=== PATIENT | female | born 1940 | race Caucasian/White ===

== ENCOUNTER 2019-11-17 10:23 | Day surgery (SDC) | payer MEDICARE, OTHER, SELFPAY ==
[2019-11-14 07:20] VITALS: BMI 30.9
--- NOTE | 2019-11-17 | PATH_ITS ---
[facility] Accession Number: [id number] . 01 Material submitted: . back - T10 BIOPSY . 02 Diagnosis: Bone, T10, Biopsy: Fragmented lamellar bone with reactive/reparative changes. Trilineage hematopoiesis. No evidence of neoplasia. MRV 11/21/2019 1158 Local . 02 Electronically signed: . Wendy Gonzalez MD, Pathologist NPI- [id number] . 01 Gross description: . Received in formalin and labeled with T10 biopsy is one piece of a bone core biopsy measuring 0.5 x 0.3 x 0.2 cm. The core is entirely submitted in cassette A1. Prior to processing, the core will be placed in decal solution for two hours. ([id number]) /MRV 11/18/2019 1031 Local . 02 Pathologist provided ICD-10: S22.070A . 02 CPT . 364401 Performed at: 01 [facility] [address], [place], [place] [id number] MD Connor Gamboa MD Phone: [phone] Performed at: 02 [facility] [address] [place], [place] [id number] MD Wendy Gonzalez MD Phone: [phone]
--- NOTE | 2019-11-17 | DI.RAD.S_ITS ---
PROCEDURE: XR T AND L SPINE 2 TO 3 VIEWS INDICATIONS: T10 KYPHOPLASTY TECHNIQUE: 2 views acquired of the thoracolumbar spine. COMPARISON: [facility] Outside Film, CT, CT THORACIC SPINE WITHOUT CONTRAST, 10/13/2019, 15:23. FINDINGS: Spot fluoroscopic intraoperative images demonstrating T10 kyphoplasty Dictated by: Price Valentine M.D. on 11/17/2019 at 16:55 Approved by: Price Valentine M.D. on 11/17/2019 at 16:56
[2019-11-17 11:53] VITALS: BP 116/70; PULSE 62; RESP 18; TEMP 36.2; O2SAT 100; BMI 29.2
[2019-11-17] MEDS: fentaNYL 100 MCG/2 ML INJ IV ×2 (13:00→13:41)
--- NOTE | 2019-11-17 14:43 | PM.PREOP ---
Pre-operative Note Interval Note History & Physical reviewed/Exam performed by Physician: Yes Changes to H&P: No
--- NOTE | 2019-11-17 14:43 | PM.OP.1 ---
Operative Date/Time/Diagnoses Date of procedure: 11/17/19 Time of procedure: 16:06 Pre-op diagnosis: T10 compression fracture Back pain Post-op diagnosis: same Procedure & Clinicians Procedure: T10 kyphoplasty Same procedure as scheduled: Yes Indications: [age] year old female with intractable pain from a T10 compression fracture. They had failed conservative management and requested operative intervention. Risks and benefits of surgery were discussed and appropriate consents were obtained. Surgeon: Zachary Bruce Click Yes if Unassisted: Yes Anesthesia Type: General Operative Notes Findings: None Closure Type: primary Specimen(s): other (T10 vertebral biopsy) Estimated Blood Loss (mL): 2 Procedure in detail: The patient was brought to the operating room and intubated on the table. They were then rolled over to the well-padded prone position. Care was taken to keep the injured right arm at her side the whole time. Time-out was performed. We confirmed positioning with two fluoroscopy views. The back was prepped and draped in the standard sterile fashion. Preoperative antibiotics were given. Using fluoroscopic guidance, the planned incision site was infiltrated with Marcaine with epinephrine and injected down to the entry site of the left pedicle of T10. A small stab incision was made and we advanced a Jamshiedi needle down the left pedicle into the vertebral body. A bone biopsy was harvested from this and sent to pathology. We then passed the DFine osteotome and opened it up to create a void inside the vertebral body. We then began injecting the cement. This was done with frequent fluoroscopy imaging. There was no extravasation, but this meant began working towards the back wall. Once we had good fill of the T10 vertebral body the injection was stopped and the trocars were removed. Final x-rays were taken. The wound was cleaned. Steri-Strips and sterile dressing were placed. Patient was rolled over, extubated, and brought to recovery without complications. Complications: none Post-operative Condition: stable Disposition: PACU Plan for aftercare: Outpatient. Activity as tolerated.
[2019-11-17] MEDS: CLINDAMYCIN 900 MG/50 ML PIGGYBACK 50 MG IV (15:25)
[2019-11-17] MEDS: BUPIVACAINE 0.25% W/ EPI 30 ML VIAL INJ (15:42)
--- NOTE | 2019-11-17 15:45 | SUR.OPER ---
Addendum entered by Price Crystal R.N. 11/17/19 15:47: tape secured across hips by . Original Note: Prone on padded flat spine table, head in foam head support, gel chest rolls, gel pad under knees, pillow under lower legs, toes free of pressure, Left arm secured on padded arm board at <90 degrees abduction with right arm secured at side. Safety belt at thigh.
[2019-11-17 16:05] VITALS: BP 138/70; PULSE 62; RESP 16; TEMP 36.5; O2SAT 97
[2019-11-17 16:10] VITALS: BP 132/68; PULSE 62; RESP 16; O2SAT 96
[2019-11-17 16:15] VITALS: BP 130/64; PULSE 64; RESP 16; O2SAT 97
== END 2019-11-17 16:29 | disposition home or self-care (01) ==
PROVIDERS: PCP Nurse Practitioner; Referring Provider Orthopaedic Surgery; Visit Provider Orthopaedic Surgery
PROC: (CPT 22513; principal; 2019-11-17 12:45)
DX: S22.070A Wedge compression fracture of T9-T10 vertebra, initial encounter for closed fracture (principal); M48.062 Spinal stenosis, lumbar region with neurogenic claudication; M43.16 Spondylolisthesis, lumbar region; M54.9 Dorsalgia, unspecified; M19.90 Unspecified osteoarthritis, unspecified site; W18.30XA Fall on same level, unspecified, initial encounter; Y92.481 Parking lot as the place of occurrence of the external cause
CPT/HCPCS: 22513; 72082; 76000; C1776; J2704; J3010

== ENCOUNTER 2022-10-20 16:33 | Inpatient (IN) | payer MEDICARE, OTHER, SELFPAY ==
[2022-10-20] VITALS (12 sets, daily range): BP systolic 158–186; BP diastolic 62–84; PULSE 93–110; RESP 16–17; TEMP 36.3–36.6; O2SAT 96–98; BMI 28.5; BMI 28.3
--- NOTE | 2022-10-20 16:51 | DI.CT.S_ITS ---
PROCEDURE: CT PEL WO CON INDICATIONS: left hip fracture TECHNIQUE: Noncontrast 3 mm axial sections acquired through the bony pelvis, with coronal and sagittal reformatting. COMPARISON: [facility] Outside Film, CT, CT PELVIS WITHOUT CONTRAST, 10/06/2022, 11:42. [facility], CR, XR PELVIS WITH LATERAL HIP LEFT, 10/20/2022, 15:43. FINDINGS: Image quality: Good Bones: Significantly comminuted basicervical left hip fracture with displacement, rotation, and about 90 degrees of angulation. There is underlying bone lucency. Partially seen lumbosacral spondylosis. Stable mild sclerotic region in the right posterior iliac bone. Soft tissues: Hematoma and edema surrounding the hip fracture. Intrapelvic intra-abdominal structures are not well evaluated on this study. Possible focal infrarenal abdominal aortic aneurysm about 3.4 centimeters. IMPRESSION: Comminuted, displaced, and angulated left hip fracture in the basicervical region, worse than prior from October 06. This may be pathologic, as described on prior outside CT with underlying bone lucency. Possible infrarenal abdominal aortic aneurysm about 3.4 centimeters. Dictated by: Kristopher Vickers M.D. on 10/20/2022 at 17:29 Approved by: Kristopher Vickers M.D. on 10/20/2022 at 17:34
[2022-10-20] MEDS: MORPHINE 2 MG/ML INJ IV (17:00)
--- NOTE | 2022-10-20 17:09 | ED_ITS ---
HPI - Extremity Injury (Lower) General Chief Complaint: Extremity Injury, Lower Stated Complaint: hip fracture, pain managment Time Seen by Provider: 10/20/22 16:39 Source: EMS Mode of arrival: EMS History of Present Illness HPI Narrative: Patient is an 81-year-old female who presents from orthopedic office with a left hip fracture. She apparently was seen and evaluated at [facility] on [address] after a fall. She actually had multiple visits to [facility] she had a CT there at 1 of the visits all confirming an greater trochanteric fracture. It is thought that might be a pathologic fracture. Not meeting admission criteria. Arrangements were made for her to go to [facility]. She has been nonweightbearing and in a wheelchair most of the time. She has not had any follow-up or repeat imaging until today. She was at orthopedics office and found to have a femoral neck fracture at which point she was put in an ambulance and sent to the ED. she denies any further fall since the initial fall Patient reports that she is having increased pain and muscle spasm mostly worse since yesterday and last night. She is been getting around by wheelchair. She denies any other injuries. I have requested and reviewed records from [facility] emergency department. There also reports from October 09 that due to the fall and the emergency department visits patient was very confused she actually took 7 2 mg hydromorphone along with aspirin and caffeine. She was monitored and cleared from a poison control standpoint. Dr. Foster, orthopedics called to give me report. Request a CT of the hip at this time. Related Data Home Medications Medication Instructions Recorded Confirmed Aspir-81 81 mg 11/17/19 Fish Oil 1,000 mg BID 11/17/19 11/17/19 Multi Vitamin DAILY 11/17/19 PreserVision AREDS BID 11/17/19 Vitamin D3 50 TID 11/17/19 astaxanthin 12 mg DAILY 11/17/19 11/17/19 atorvastatin 80 mg DAILY 11/17/19 11/17/19 carvedilol 6.25 mg DAILY 11/17/19 11/17/19 d-mannose BID 11/17/19 furosemide 20 mg DAILY 11/17/19 11/17/19 gabapentin 100 mg DAILY 11/17/19 11/17/19 hydrocodone-acetaminophen 10 mg PRN Pain (Scale Score 7-10) 11/17/19 lisinopril 20 mg DAILY 11/17/19 11/17/19 pantoprazole 40 mg DAILY 11/17/19 11/17/19 potassium chloride 20 meq DAILY 11/17/19 11/17/19 trazodone 100 mg BID 11/17/19 11/17/19 Previous Rx's Medication Instructions Recorded hydrocodone 5 mg-acetaminophen 325 1 tab PO Q4H PRN pain #10 tabs 11/17/19 mg tablet ([place]) Allergies Allergy/AdvReac Type Severity Reaction Status Date / Time erythromycin base AdvReac Intermediate Rash Verified 10/20/22 16:48 Penicillins AdvReac Intermediate Rash Verified 10/20/22 16:48 Patient History Medical History Arthritis CAD (coronary artery disease) COPD (chronic obstructive pulmonary disease) Cyanosis Depression Diarrhea Fall from ground level (10/03/19) Frequent UTI GERD (gastroesophageal reflux disease) Herpes simplex HLD (hyperlipidemia) HTN (hypertension) Humeral head fracture Itchy skin Macular degeneration of left eye Myocardial infarction (~2002) Osteoarthritis Stroke Synovial cyst of popliteal space [Ramírez], left knee Wedge compression fracture of thoracic vertebra Surgical History History of bilateral tubal ligation (~1979) Hx of appendectomy Hx of bilateral cataract extraction (~2013) Hx of heart artery stent (~2002) S/P tonsillectomy and adenoidectomy Social History household members: none Smoking Status: Former smoker alcohol intake: current Smoking Status: Former smoker alcohol intake frequency: 0-2 drinks per day Substance Use Type: does not use Exam Initial Vital Signs Initial Vital Signs: Vital Signs Temperature 98 F 10/20/22 16:40 Pulse Rate 98 H 10/20/22 16:40 Respiratory Rate 16 10/20/22 16:40 Pulse Oximetry 96 10/20/22 16:40 Oxygen Delivery Method 10/20/22 16:40 GENERAL: Alert pleasant 81-year-old female appears uncomfortable HEENT: Head atraumatic,EOMI, pupils reactive, face symmetric, moist mucous membranes CARDIOVASCULAR: Regular rate and rhythm without murmurs, rubs or gallops. RESPIRATORY: Breath sounds equal bilaterally, no wheezes rales or rhonchi. ABDOMEN: Soft, nontender. Normoactive bowel sounds all 4 quadrants. No guarding or rebound. EXTREMITIES: Normal range of motion, no clubbing or edema. Neurovascularly intact Left leg internally rotated and shortened distal pedal pulse intact NEUROLOGICAL: Alert and oriented x4. SKIN: Warm, dry, no laceration, no petechiae, no rashes or lesions. Course Orders Ordered: ED Orders 10/20/22 16:51 CT pelvis wo con Stat 10/20/22 17:04 COVID19 -Nasal RAPID/Pre-Proc Stat 10/20/22 18:15 CBC Auto Diff [Complete Blood Count AUTO DIFF] Stat CMP [Comprehensive Metabolic Panel] Stat Discontinued Medications Hydromorphone HCl (Hydromorphone 0.5 Mg Inj) 0.5 mg IV NOW ONE Stop: 10/20/22 19:44 Last Admin: 10/20/22 19:50 Dose: 0.5 mg Documented By: Morphine Sulfate (Morphine 2 Mg/Ml Inj) 2 mg IV NOW ONE Stop: 10/20/22 16:52 Last Admin: 10/20/22 17:00 Dose: 2 mg Documented By: [facility] Vital Signs Vital signs: Vital Signs - 8 hr 10/20/22 16:40 10/20/22 16:50 10/20/22 16:54 Temperature 98 F Pulse Rate 98 H 102 H 97 H Respiratory Rate 16 Blood Pressure 186/62 H Pulse Oximetry 96 97 97 Oxygen Delivery Method Room Air Room Air 10/20/22 17:00 10/20/22 17:30 10/20/22 18:00 Temperature Pulse Rate 98 H 93 H 96 H Respiratory Rate Blood Pressure Pulse Oximetry 96 97 Oxygen Delivery Method MDM - Extremity Injury (Lower) Lab Data Result diagrams: 10/20/22 18:15 10/20/22 18:15 Labs: Lab Results 10/20/22 10/20/22 10/20/22 Range/Units 17:04 18:15 18:15 WBC 11.9 H (4.5-11.0) X10^3/uL RBC 2.52 L (4.0-5.2) X10^6/uL Hgb 7.8 L (12.0-16.0) g/dL Hct 23.6 L (36-46) % MCV 93.5 (80-100) fL MCH 30.9 (26-34) PG MCHC 33.1 (30-36) % RDW 17.5 H (11.6-14.8) % Plt Count 544 H (150-400) X10^3/uL Neut % (Auto) 80.6 H (50-75) % Lymph % (Auto) 8.8 L (25-40) % Tift % (Auto) 8.2 (3-14) % Eos % (Auto) 1.8 L (2-4) % Baso % (Auto) 0.6 (0-2) % Neut # (Auto) 9600 H (7550-0274) /uL Lymph # (Auto) 1100 (9723-4467) /uL Tift # (Auto) 1000 H (0-900) /uL Eos # (Auto) 200 (0-450) /uL Baso # (Auto) 100 (0-100) /uL Sodium 135 L (137-145) mmol/L Potassium 3.5 (3.4-5.1) mmol/L Chloride 102 (98-107) mmol/L Carbon Dioxide 27 (22-32) mmol/L BUN 12 (7-17) mg/dL Creatinine 0.65 (0.52-1.04) mg/dL Estimated GFR > 60 (>60) mL/min BUN/Creatinine Ratio 18.5 (6-22) Glucose 119 H (80-110) mg/dL Calcium 9.2 (8.4-10.2) mg/dL Total Bilirubin 0.7 (0.2-1.3) mg/dL AST 60 H (14-36) IU/L ALT 65 H (<35) IU/L Alkaline Phosphatase 124 (38-126) U/L Total Protein 6.0 L (6.3-8.2) g/dL Albumin 3.2 L (3.5-5.0) g/dL Globulin 2.8 (1.7-4.1) g/dL Albumin/Globulin Ratio 1.1 (1.0-2.8) SARS-CoV-2 (PCR) Negative (Negative) Imaging Data Ct pelvis: Radiologist's Impression: Patient: Prisca Soares MR#: [id number] : 1940 Acct:[id number] Age/Sex: 81 / F Date of Service: 10/20/22 Loc: ED Accession Number: [id number] ?? Procedure: CT pelvis wo con Ordering Provider: Ivone Daly D.O. PROCEDURE:? CT PEL WO CON ? INDICATIONS:? left hip fracture ? TECHNIQUE:? Noncontrast 3 mm axial sections acquired through the bony pelvis, with coronal and sagittal reformatting.? ? COMPARISON:? [facility] Outside Film, CT, CT PELVIS WITHOUT CONTRAST, 10/06/2022, 11:42.? [facility] [place], CR, XR PELVIS WITH LATERAL HIP LEFT, 10/20/2022, 15:43. ? FINDINGS:? Image quality:? Good ? Bones:? Significantly comminuted basicervical left hip fracture with displacement, rotation, and about 90 degrees of angulation.? There is underlying bone lucency. Partially seen lumbosacral spondylosis.? Stable mild sclerotic region in the ri ght posterior iliac bone. ? Soft tissues:? Hematoma and edema surrounding the hip fracture.? Intrapelvic intra-abdominal structures are not well evaluated on this study. Possible focal infrarenal abdominal aortic aneurysm about 3.4 centimeters. ? ? IMPRESSION:? Comminuted, displaced, and angulated left hip fracture in the basicervical region, worse than prior from October 06.? This may be pathologic, as described on prior outside CT with underlying bone lucency. Possible infrarenal abdominal aortic aneurysm about 3.4 centimeters. ? ? ? Dictated by: Kristopher Vickers M.D. on 10/20/2022 at 17:29 ? ? [facility] Narrative Medical decision making narrative: The patient is an 81-year-old female who has a history of hypertension hyperlip idemia presenting today with new fracture of left hip. Previously had a greater trochanteric fracture thought to be pathologic however upon follow-up at orthopedic office today she is found to have femoral neck fracture. Orthopedics is well aware. She denies any fall. There is no need for any further imaging. She is given morphine and Dilaudid for pain. Orthopedics is updated Dr. Owens accepts for admission Discharge Plan Departure Patient Disposition: Admitted As Inpatient Clinical Impression: Fracture of hip, left, closed Admit Date/Time: 10/20/22 18:25 Admit Provider: Sachi Macdonald
[2022-10-20 17:27] LABS: COVID19 -Nasal RAPID Negative (Negative)
[2022-10-20 18:36] LABS: Add Manual Diff / Slide Review NO; Basophils Absolute Auto 100 /uL (0-100); Basophils Percent Auto 0.6 % (0-2); Eosinophils Absolute Auto 200 /uL (0-450); Eosinophils Percent Auto 1.8 % (2-4); Hematocrit 23.6 % (36-46); Hemoglobin 7.8 g/dL (12.0-16.0); Lymphocytes Absolute Auto 1100 /uL (1100-4500); Lymphocytes Percent Auto 8.8 % (25-40); Mean Corpuscular HGB Conc 33.1 % (30-36); Mean Corpuscular Hemoglobin 30.9 PG (26-34); Mean Corpuscular Volume 93.5 fL (80-100); Monocytes Absolute Auto 1000 /uL (0-900); Monocytes Percent Auto 8.2 % (3-14); Neutrophils Absolute Auto 9600 /uL (1500-7000); Neutrophils Percent Auto 80.6 % (50-75); Platelet Count 544 X10^3/uL (150-400); Red Blood Cell Count 2.52 X10^6/uL (4.0-5.2); Red Cell Distribution Width 17.5 % (11.6-14.8); White Blood Cell Count 11.9 X10^3/uL (4.5-11.0)
[2022-10-20 18:51] LABS: Alanine Aminotransferase 65 IU/L (<35); Albumin 3.2 g/dL (3.5-5.0); Albumin Globulin Ratio 1.1 (1.0-2.8); Alkaline Phosphatase 124 U/L (38-126); Aspartate Aminotransferase 60 IU/L (14-36); BUN Creatinine Ratio 18.5 (6-22); Bilirubin Total 0.7 mg/dL (0.2-1.3); Blood Urea Nitrogen 12 mg/dL (7-17); Calcium 9.2 mg/dL (8.4-10.2); Carbon Dioxide 27 mmol/L (22-32); Chloride 102 mmol/L (98-107); Estimated Glomerular Filt Rate > 60 mL/min (>60); Globulin 2.8 g/dL (1.7-4.1); Glucose 119 mg/dL (80-110); HEMOLYSIS < 15 (0-50); Potassium 3.5 mmol/L (3.4-5.1); Sodium 135 mmol/L (137-145)
[2022-10-20] MEDS: HYDROMORPHONE 0.5 MG INJ IV (19:50)
[2022-10-20] MEDS: LACTATED RINGERS 1,000 ML 100 ML IV (21:49)
[2022-10-20] MEDS: OXYCODONE IR 5 MG TABLET PO (21:54)
[2022-10-21] VITALS (8 sets, daily range): BP systolic 102–160; BP diastolic 50–82; PULSE 60–105; RESP 16–20; TEMP 36.3–37; O2SAT 93–98
[2022-10-21 00:46] LABS: Bacteria Urine Many (>30); Culture Indicated Urine Specimen Cultured; RBC Urine 1-5/HPF (0-5/HPF); Squamous Epithelial Cell Urine 1-5 /HPF (0-5/HPF); WBC Urine >100/HPF (0-5/HPF)
[2022-10-21] MEDS: ONDANSETRON 4 MG/2 ML INJ IV (00:49)
[2022-10-21] MEDS: diphenhydrAMINE 50 MG/ML VIAL 25 MG IV (00:49)
[2022-10-21] MEDS: HYDROMORPHONE 0.5 MG INJ IV ×4 (00:49→12:22)
--- NOTE | 2022-10-21 01:23 | PC.NURSE ---
pt had removed SCDs, tangled lucero catheter tubing. Pt positioned herself to set on edge of bed at 90degrees. Staff has educated pt repeatedly more damage could be done sitting like this and moving around so much. Pt continues to refuse getting back to bed in a safe position saying 'not right now' and ' i need a few minutes to think about it'. pt telling stories from past and unable to follow a normal conversation, jumping from different stories. Pt stating multiple times she wants 'to go home'. has become very suspicious of staff, not allowing them to do anything. RN sitting outside of room w/ door open and bed alarm on. Pt has tried to lay head down at foot of bed, however still refuses to lay back in bed.
--- NOTE | 2022-10-21 02:44 | P.HP_ITS ---
History of Present Illness History of Present Illness Date Patient Seen: 10/20/22 Time Patient Seen: 23:50 Chief complaint: hip fracture, pain managment Narrative: Prisca Medina is an 81-year-old female with hypertension and hyperlipidemia, presented from the from orthopedic office with a left hip fracture.? Limited history provided by the patient, but consistent w/ED note. Patient had been accepted for admission prior to shift change. Per the ED note, she was seen and evaluated at [facility] on [address] after a fall.? She actually had multiple visits to [facility] she had a CT there at 1 of the visits all confirming a greater trochanteric fracture.? It is thought that might be a pathologic fracture not meeting admission criteria.? Ar rangements were made for her to go to [facility].? She has been nonweightbearing and in a wheelchair most of the time.? She has not had any follow-up or repeat imaging until today.? She was at orthopedics office and found to have a femoral neck fracture at which point she was put in an ambulance and sent to the ED. she denies any further fall since the initial fall. Patient reports that she is having increased pain and muscle spasm mostly worse since yesterday and last night.? She is been getting around by wheelchair.? She denies any other injuries.?She does endorse a history of a loop recorder implantation and removal by Dr. 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 She is unable to meaningfully participate in a review of systems. She stated that she felt like she was vulnerable here and wants to go home. And thought that the orthopedic doctor she saw was ?strange?. Pelvis CT ordered and today's ED visit did report a ?comminuted displaced and angulated left hip fracture in the basic cervical region worse than prior from October 06. There was question as to whether was pathologic. Discussion was held with Dr. Foster, orthopedic surgery and he plans to take her into the OR in the morning. She is afebrile, blood pressure 160/82 heart rate 105 respiratory rate 19 oxygen saturation 98% on room air she weighs 75 kg with a BMI of 28.3. She has a mildly elevated white count at 11.9 hemoglobin 7.8 hematocrit 23.6 platelet count 544 she has a mild left shift 9600, sodium 135 glucose 119 AST 60 ALT 65 albumin is 3.2 her UA was positive for UTI and will be sent out for culture COVID-19 PCR is negative and she is O-positive blood type. FH: Mother age 81 she had ALS, father was 79 apparently had multiple CVAs and dementia, she has a sister age 70 who is alive and has had a history of breast cancer. Patient History Medical History Arthritis CAD (coronary artery disease) COPD (chronic obstructive pulmonary disease) Cyanosis Depression Diarrhea Fall from ground level (10/03/19) Frequent UTI GERD (gastroesophageal reflux disease) Herpes simplex HLD (hyperlipidemia) HTN (hypertension) Humeral head fracture Itchy skin Macular degeneration of left eye Myocardial infarction (~2002) Osteoarthritis Stroke Surgical contraindication to anticoagulation therapy Synovial cyst of popliteal space [Ramírez], left knee Wedge compression fracture of thoracic vertebra Surgical History History of bilateral tubal ligation (~1979) Hx of appendectomy Hx of bilateral cataract extraction (~2013) Hx of heart artery stent (~2002) S/P tonsillectomy and adenoidectomy Family & Social History Social History: household members none Prior Living Arrangements House Safety & Behavioral: Feels Safe in Current Yes Environment Been Physically Hurt or No Threatened By a Person Tobacco & Substance use: Tobacco type cigarettes Smoking Status Former smoker alcohol intake current alcohol intake frequency 0-2 drinks per day Substance Use Type does not use Meds Home Medications and Allergies Home Medications Medication Instructions Recorded Confirmed Type Aspir-81 81 mg PO DAILY 11/17/19 10/20/22 History Fish Oil 1,000 mg BID 11/17/19 10/20/22 History Multi Vitamin 1 tab PO DAILY 11/17/19 10/20/22 History PreserVision AREDS BID 11/17/19 History atorvastatin 80 mg PO BEDTIME 11/17/19 10/20/22 History trazodone 100 mg BEDTIME 11/17/19 10/20/22 History acetaminophen 500 mg tablet 500 mg PO QID PRN Pain (Scale 10/20/22 10/20/22 History Score 4-6) amlodipine 5 mg tablet 5 mg PO DAILY 10/20/22 10/20/22 History cilostazol 50 mg tablet 50 mg PO BID 10/20/22 10/20/22 History diphenoxylate-atropine 2.5 1 - 2 tab PO QID PRN Diarrhea 10/20/22 10/20/22 History mg-0.025 mg tablet gabapentin 100 mg tablet 400 mg PO BEDTIME 10/20/22 10/20/22 History hydromorphone 2 mg tablet 2 mg PO Q6H PRN Pain (Scale Score 10/20/22 10/20/22 H istory (Dilaudid) 4-6) lisinopril 5 mg tablet 5 mg PO DAILY 10/20/22 10/20/22 History meloxicam 7.5 mg tablet 7.5 mg PO DAILY 10/20/22 10/20/22 History naltrexone 50 mg tablet 50 mg PO DAILY 10/20/22 10/20/22 History oxycodone 5 mg tablet 5 mg PO Q8H PRN Pain (Scale Score 10/20/22 10/20/22 History 4-6) Allergies Allergy/AdvReac Type Severity Reaction Status Date / Time erythromycin base AdvReac Intermediate Rash Verified 10/20/22 16:48 Penicillins AdvReac Intermediate Rash Verified 10/20/22 16:48 Review of Systems Review of Systems ROS: Yes unobtainable due to mental status Exam Vital Signs (past 8 hours): - 10/20/22 20:54 10/20/22 19:00 10/20/22 19:30 Temperature Pulse Rate 104 H 109 H Respiratory Rate 16 Blood Pressure 164/84 H Pulse Oximetry 98 97 Oxygen Delivery Method Room Air Room Air Oxygen Flow Rate 10/20/22 20:00 10/20/22 20:30 10/20/22 21:00 Temperature 97.4 F L Pulse Rate 110 H 100 H 100 H Respiratory Rate 16 17 Blood Pressure 186/82 H 158/83 H Pulse Oximetry 97 96 98 Oxygen Delivery Method Room Air Oxygen Flow Rate 0 10/21/22 00:00 Temperature 98 F Pulse Rate 105 H Respiratory Rate 19 Blood Pressure 160/82 H Pulse Oximetry 98 Oxygen Delivery Method Oxygen Flow Rate 0 Oxygen Delivery Method Room Air Oxygen Flow Rate 0 Narrative Exam Narrative: Gen: Alert, oriented, well-developed 81 y.o. female, anxious and appears to be confused HEENT: normocephalic, atraumatic, conjunctiva clear, sclera non-icteric, oral mucosa pink and moist Neck: supple, full ROM, no JVD, trachea is midline Resp: Lungs CTA, non-labored breathing CV: RRR, no murmur or rubs Abd: soft, non-tender, normoactive BTs Skin: no lesions or rashes, dry and intact Neuro: Alert and oriented X 4 w/no focal deficits. Speech clear and coherent. Extremities: left leg movement elicits great deal of pain, negative Cathy?s sign Psyche: normal mood and affect. Objective Labs Result Diagrams: 10/20/22 18:15 10/20/22 18:15 Labs: Laboratory Results - last 24 hr 10/20/22 10/20/22 10/20/22 17:04 18:15 18:15 WBC 11.9 H RBC 2.52 L Hgb 7.8 L Hct 23.6 L MCV 93.5 MCH 30.9 MCHC 33.1 RDW 17.5 H Plt Count 544 H Neut % (Auto) 80.6 H Lymph % (Auto) 8.8 L [place] % (Auto) 8.2 Eos % (Auto) 1.8 L Baso % (Auto) 0.6 Neut # (Auto) 9600 H Lymph # (Auto) 1100 [place] # (Auto) 1000 H Eos # (Auto) 200 Baso # (Auto) 100 Sodium 135 L Potassium 3.5 Chloride 102 Carbon Dioxide 27 BUN 12 Creatinine 0.65 Estimated GFR > 60 BUN/Creatinine Ratio 18.5 Glucose 119 H Calcium 9.2 Magnesium Total Bilirubin 0.7 AST 60 H ALT 65 H Alkaline Phosphatase 124 Total Protein 6.0 L Albumin 3.2 L Globulin 2.8 Albumin/Globulin Ratio 1.1 Urine RBC Urine WBC Ur Squamous Epith Cells Urine Bacteria Ur Culture Indicated? SARS-CoV-2 (PCR) Negative Blood Type Antibody Screen 10/20/22 10/20/22 10/20/22 21:15 23:20 23:52 WBC RBC Hgb Hct MCV MCH MCHC RDW Plt Count Neut % (Auto) Lymph % (Auto) [place] % (Auto) Eos % (Auto) Baso % (Auto) Neut # (Auto) Lymph # (Auto) [place] # (Auto) Eos # (Auto) Baso # (Auto) Sodium Potassium Chloride Carbon Dioxide BUN Creatinine Estimated GFR BUN/Creatinine Ratio Glucose Calcium Magnesium 2.0 Total Bilirubin AST ALT Alkaline Phosphatase Total Protein Albumin Globulin Albumin/Globulin Ratio Urine RBC 1-5/hpf Urine WBC >100/hpf H Ur Squamous Epith Cells 1-5 /hpf Urine Bacteria Many (>30) H Ur Culture Indicated? Specimen cultured SARS-CoV-2 (PCR) Blood Type O Positive Antibody Screen Negative Assessment & Plan Assessment & Plan narrative: Prisca Soares is admitted for surgical treatment of a left sided intertrochanteric fracture and antibiotic treatment for a urinary tract infection. Urinary tract infection, acute and present on admission * UA done after she got to the floor and after having a Sandoval placed indicated an infection that will be cultured. Culture is pending * She started I IV ceftriaxone 1 g daily Left intertrochanteric fracture, acute, present on admission * Dr. Foster consulting and plans to take her into the OR late on 10/21 * Pain control with Tylenol, IV morphine and Dilaudid Essential hypertension, chronic * Continue home doses of amlodipine and lisinopril Dyslipidemia, chronic * Continue home dose of atorvastatin Other independent historians: Discussion of results, plan of care with independent HCP/other Day team hospit alist Reviewed outside records: Requested. VTE Prophylaxis: Wells risk score 0 X Bilateral SCDs Pharmacological VTE prophylaxis contraindicated in the setting of anticipated surgery. Patient is admitted to the inpatient service due to the severity of disease, risks of further disease progression and this stay is expected to exceed 2 midnights. FEN: IV fluids: NS at 100 mL/hour, diet: NPO past midnight, labs: CBC, C/BMP, liver enzymes, Mag, PT/INR Consultants Dr. Foster, orthopedics care and involvement in the patient?s care is appreciated. Dispo: Probable discharge to assisted living/rehab Code status: Full code presumed as discussed with the patient. This will need to be confirmed with daughter Marisa in the morning. Advanced care planning [ ] minutes. [X] I have utilized all available immediate resources to obtain, update, or review of the patient's current medications VTE Deep Vein Thrombosis/Pulmonary Embolism Present on Admission: No MIPS - Admit I confirm the patient?s Advance Care Plan is present, Code status is documented, Surrogate decision maker is in patient?s record: Yes MIPS - DC The patient has current or prior documentation of left ventricular ejection fraction (LVEF) less than 40%, or moderate or severely depressed left ventricular systolic function.: No COVID-19 COVID-19 status: Negative Result date/Date tested (Pos, Neg/Pending): 10/20/22 Quality VTE Deep Vein Thrombosis/Pulmonary Embolism Present on Admission: No
[2022-10-21] MEDS: cefTRIAXone 1,000 MG in SODIUM CHLORIDE 0.9% 100 ML 200 MG IV (03:51)
[2022-10-21 07:28] LABS: Add Manual Diff / Slide Review NO; Basophils Absolute Auto 100 /uL (0-100); Basophils Percent Auto 0.9 % (0-2); Eosinophils Absolute Auto 200 /uL (0-450); Eosinophils Percent Auto 1.7 % (2-4); Hematocrit 23.7 % (36-46); Hemoglobin 7.9 g/dL (12.0-16.0); Lymphocytes Absolute Auto 1200 /uL (1100-4500); Lymphocytes Percent Auto 10.6 % (25-40); Mean Corpuscular HGB Conc 33.2 % (30-36); Mean Corpuscular Hemoglobin 31.3 PG (26-34); Mean Corpuscular Volume 94.3 fL (80-100); Monocytes Absolute Auto 1000 /uL (0-900); Monocytes Percent Auto 8.8 % (3-14); Neutrophils Absolute Auto 8500 /uL (1500-7000); Platelet Count 552 X10^3/uL (150-400); Red Blood Cell Count 2.52 X10^6/uL (4.0-5.2); Red Cell Distribution Width 17.1 % (11.6-14.8); White Blood Cell Count 10.9 X10^3/uL (4.5-11.0)
[2022-10-21 07:50] LABS: Alanine Aminotransferase 52 IU/L (<35); Albumin 2.8 g/dL (3.5-5.0); Albumin Globulin Ratio 1.1 (1.0-2.8); Alkaline Phosphatase 108 U/L (38-126); Aspartate Aminotransferase 43 IU/L (14-36); BUN Creatinine Ratio 14.8 (6-22); Bilirubin Total 0.4 mg/dL (0.2-1.3); Blood Urea Nitrogen 9 mg/dL (7-17); Calcium 8.8 mg/dL (8.4-10.2); Carbon Dioxide 29 mmol/L (22-32); Chloride 102 mmol/L (98-107); Estimated Glomerular Filt Rate > 60 mL/min (>60); Globulin 2.6 g/dL (1.7-4.1); Glucose 103 mg/dL (80-110); HEMOLYSIS < 15 (0-50); Potassium 3.5 mmol/L (3.4-5.1); Sodium 136 mmol/L (137-145); Total Protein 5.4 g/dL (6.3-8.2)
[2022-10-21] MEDS: LACTATED RINGERS 1,000 ML 100 ML IV (09:13)
[2022-10-21] MEDS: ACETAMINOPHEN 325 MG TABLET 650 MG PO (09:14)
[2022-10-21] MEDS: carvediloL 3.125 MG TABLET 6.25 MG PO (09:14)
[2022-10-21] MEDS: OXYCODONE IR 5 MG TABLET PO (09:15)
[2022-10-21] MEDS: lisinopriL 20 MG TABLET PO (09:15)
[2022-10-21] MEDS: PANTOPRAZOLE DR 40 MG TABLET PO (09:16)
--- NOTE | 2022-10-21 11:33 | CM.DANOTE ---
Addendum entered by Eileen Jordan R.N. 10/21/22 12:18: Met with pt and pt daughter, ASHLI Cunningham. 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 Brought in Medicaid application. Daughter had indicated that patient has limited income. Brought in Senior resource booklet and reviewed with daughter. Pt reports that she is happy with [facility] and the care received and is willing to return there. Original Note: DCP: Case received EMR reviewed, this lap grinder introduced self to patient and patient daughter ASHLI who was in room and was able to obtain information regarding pt's baseline activity level prior to hospitalization, as well as current living situation. DCP's assessment completed with information currently available. Pt came in via ambulance on 10/20/2022 to the care of [facility]. PCP: Dr. Vigil Payor: Medicare Pt came to the hospital secondary to having been at the orthopedic office with left hip fracture. She has hx of hypertension, hyperlipidemia. Pt was previously seen on 10/08 after a fall at home and was diagnosed with a pathologic fx of left hip that was deemed not to meet their admission criteria. Arragements were made for her to go to [facility] with private pay. The plan is for pt to have hip surgery here at the hospital. Met with pt and daughter, ASHLI in her room. Pt is A+O x3 varies to situation. Pt was laying comfortably in bed. She confirmed that she moved in with her Daughter and her boyfriend back in December. Daughter confirmed that when pt fell the end of September that [facility] diagnosed her with a fracture in which surgery would not be performed. Daughter states that due to the inability of her Mom taking her pain medications correctly, and that they were not able to be with her consistently that they reached out to [facility] and paid privately for care after her fall. Daughter reports that pt was working with therapy's at [facility] and able to use W/C and walker with SBA. P: Goal is to get pt back to [facility] on [facility], I have contacted Bren, Baltazar there and she agrees to accept pt. Surgery time is not yet known. Will follow closely. Eileen Jordan RN, Logging Crew Foreman/Khushi Palmer RN/Logging Crew Foreman Discharge Planning/Care Management CM Discharge Assessment Start: 10/21/22 11:22 Freq: Status: Active Protocol: Document 10/21/22 11:23 TAMIKO (Rec: 10/21/22 11:33 [email or web address] [id number]) Discharge Planning Assessment Assigned Coding File Clerk Eileen Jordan RN/Logging Crew Foreman Advance Directives? Yes Advance Directives on File No: states DNR History Provided By Patient,Family Member,Medical Record Prior Living Arrangements Skilled Nurse Facility Comment Pt has been in [facility] under private pay. Household Members other Comment Prior to [facility] placement, pt was residing in [place] with her daughter and family. Type of transporation used prior to Relies on Others admit Facility Name [facility] From: [facility] Willing to Return to Facility? Yes Independent with ADL's No Is patient alert and oriented? Yes Needs Assistance With Bathing,Meal Prep,Toileting, Managing Medications,Home Chores / Shopping Caregiver for Another No Community Services used prior to Physical Therapy,Occupational admission: Therapy DME Already Rented / Owned Wheelchair,FWW / Walker Patient/Family Preference Assisted Facility Comment Family prefers for pt to return to [facility] in [place]. Barriers to Discharge No Comment Per Bren at [facility]. They will accept pt back to facility. Discharge Plan Assisted Facility Transportation Arrangement Facility or possible BLS. Referrals Initiated Other If patient plan is SNF: Has PASSR been No completed? Comment Pt should not need Passr because she is returning to [facility], unless there are notable behavioral changes. Medicare Choice List Provided Yes SNF/HH Preference Return to [facility] Has Agency SNF been contacted Yes Comment Bren at [facility] accepts pt's return Whiteboard Updated in Patient Room with Yes name and ext. # of Coding File Clerk Review Status In Process Next Review Type Continued Stay Review
[2022-10-21 13:01] LABS: HEMOLYSIS < 15 (0-50); Iron 29 ug/dL (37-170)
[2022-10-21 13:14] LABS: Percent Iron Saturation 14 % (15-50); Total Iron Binding Capacity 211 ug/dL (265-497); Transferrin 148 mg/dL (206-381)
[2022-10-21 13:42] LABS: Ferritin 71 ng/mL (11-264)
--- NOTE | 2022-10-21 13:54 | PM.PN.1 ---
Subjective Subjective Date Patient Seen: 10/21/22 Interval history: 81-year-old female? with hypertension and hyperlipidemia,? presented from the from orthopedic office with a left hip fracture. Patient is complaining of significant pain in the left hip awaiting surgical repair. Exam Vital Signs (past 8 hours): - 10/21/22 06:43 10/21/22 08:03 10/21/22 12:20 Temperature 97.3 F L 98.0 F 97.6 F Pulse Rate 101 H 98 H 60 Respiratory Rate 16 18 Blood Pressure 152/65 H 154/68 H 113/57 L Pulse Oximetry 97 96 96 Oxygen Flow Rate 0 0 0 Oxygen Delivery Method Room Air Oxygen Flow Rate 0 Narrative Exam Narrative: General: Alert cooperative female appears moderately uncomfortable Lungs: Clear Heart: Regular rhythm Abdomen: Soft Extremities: Left hip externally rotated, no distal edema Neurological: Speech fluent, well oriented Objective Labs Result Diagrams: 10/21/22 06:40 10/21/22 06:40 Labs: Laboratory Results - last 24 hr 10/20/22 10/20/22 10/20/22 17:04 18:15 18:15 WBC 11.9 H RBC 2.52 L Hgb 7.8 L Hct 23.6 L MCV 93.5 MCH 30.9 MCHC 33.1 RDW 17.5 H Plt Count 544 H Neut % (Auto) 80.6 H Lymph % (Auto) 8.8 L [place] % (Auto) 8.2 Eos % (Auto) 1.8 L Baso % (Auto) 0.6 Neut # (Auto) 9600 H Lymph # (Auto) 1100 [place] # (Auto) 1000 H Eos # (Auto) 200 Baso # (Auto) 100 Sodium 135 L Potassium 3.5 Chloride 102 Carbon Dioxide 27 BUN 12 Creatinine 0.65 Estimated GFR > 60 BUN/Creatinine Ratio 18.5 Glucose 119 H Calcium 9.2 Magnesium Iron TIBC % Saturation Transferrin Ferritin Total Bilirubin 0.7 AST 60 H ALT 65 H Alkaline Phosphatase 124 Total Protein 6.0 L Albumin 3.2 L Globulin 2.8 Albumin/Globulin Ratio 1.1 Urine RBC Urine WBC Ur Squamous Epith Cells Urine Bacteria Ur Culture Indicated? SARS-CoV-2 (PCR) Negative Blood Type Antibody Screen 10/20/22 10/20/22 10/20/22 21:15 23:20 23:52 WBC RBC Hgb Hct MCV MCH MCHC RDW Plt Count Neut % (Auto) Lymph % (Auto) [place] % (Auto) Eos % (Auto) Baso % (Auto) Neut # (Auto) Lymph # (Auto) [place] # (Auto) Eos # (Auto) Baso # (Auto) Sodium Potassium Chloride Carbon Dioxide BUN Creatinine Estimated GFR BUN/Creatinine Ratio Glucose Calcium Magnesium 2.0 Iron TIBC % Saturation Transferrin Ferritin Total Bilirubin AST ALT Alkaline Phosphatase Total Protein Albumin Globulin Albumin/Globulin Ratio Urine RBC 1-5/hpf Urine WBC >100/hpf H Ur Squamous Epith Cells 1-5 /hpf Urine Bacteria Many (>30) H Ur Culture Indicated? Specimen cultured SARS-CoV-2 (PCR) Blood Type O Positive Antibody Screen Negative 10/21/22 10/21/22 10/21/22 06:40 06:40 06:40 WBC 10.9 RBC 2.52 L Hgb 7.9 L Hct 23.7 L MCV 94.3 MCH 31.3 MCHC 33.2 RDW 17.1 H Plt Count 552 H Neut % (Auto) 78.0 H Lymph % (Auto) 10.6 L [place] % (Auto) 8.8 Eos % (Auto) 1.7 L Baso % (Auto) 0.9 Neut # (Auto) 8500 H Lymph # (Auto) 1200 [place] # (Auto) 1000 H Eos # (Auto) 200 Baso # (Auto) 100 Sodium 136 L Potassium 3.5 Chloride 102 Carbon Dioxide 29 BUN 9 Creatinine 0.61 Estimated GFR > 60 BUN/Creatinine Ratio 14.8 Glucose 103 Calcium 8.8 Magnesium 2.0 Iron TIBC % Saturation Transferrin Ferritin 71 Total Bilirubin 0.4 AST 43 H ALT 52 H Alkaline Phosphatase 108 Total Protein 5.4 L Albumin 2.8 L Globulin 2.6 Albumin/Globulin Ratio 1.1 Urine RBC Urine WBC Ur Squamous Epith Cells Urine Bacteria Ur Culture Indicated? SARS-CoV-2 (PCR) Blood Type Antibody Screen 10/21/22 06:40 WBC RBC Hgb Hct MCV MCH MCHC RDW Plt Count Neut % (Auto) Lymph % (Auto) [place] % (Auto) Eos % (Auto) Baso % (Auto) Neut # (Auto) Lymph # (Auto) [place] # (Auto) Eos # (Auto) Baso # (Auto) Sodium Potassium Chloride Carbon Dioxide BUN Creatinine Estimated GFR BUN/Creatinine Ratio Glucose Calcium Magnesium Iron 29 L TIBC 211 L % Saturation 14 L Transferrin 148 L Ferritin Total Bilirubin AST ALT Alkaline Phosphatase Total Protein Albumin Globulin Albumin/Globulin Ratio Urine RBC Urine WBC Ur Squamous Epith Cells Urine Bacteria Ur Culture Indicated? SARS-CoV-2 (PCR) Blood Type Antibody Screen PFSH Medical History Arthritis CAD (coronary artery disease) COPD (chronic obstructive pulmonary disease) Cyanosis Depression Diarrhea Fall from ground level (10/03/19) Frequent UTI GERD (gastroesophageal reflux disease) Herpes simplex HLD (hyperlipidemia) HTN (hypertension) Humeral head fracture Itchy skin Macular degeneration of left eye Myocardial infarction (~2002) Osteoarthritis Stroke Surgical contraindication to anticoagulation therapy Synovial cyst of popliteal space [Ramírez], left knee Wedge compression fracture of thoracic vertebra Surgical History History of bilateral tubal ligation (~1979) Hx of appendectomy Hx of bilateral cataract extraction (~2013) Hx of heart artery stent (~2002) S/P tonsillectomy and adenoidectomy Social History household members: other Smoking Status: Former smoker alcohol intake: current Assessment & Plan Assessment & Plan narrative: 1. Left inter trochanteric fracture, recent, present on admission -patient awaiting definitive treatment with surgery, Dr. Foster consulting for ortho -oxycodone po, hydromorphone IV as needed 2. Pathological pelvic CT findings -CT findings of underlying bone lucencies possibly pathologic -bone biopsy would be helpful -ordered screening blood work for myeloma 3. Essential hypertension -continue amlodipine and lisinopril per home routine 4. Dyslipidemia -continue atorvastatin per home routine 5. History of CAD -resume ASA postop 6. Urinary tract infection -abnormal UA consistent with UTI -Rocephin 1 g q.d. x 3 days 7. Anemia, iron deficiency -hemoglobin 7.8 on admission -transferrin saturation 14 consistent with some degree iron deficiency -additionally ordered S IEP and serum light chains for myeloma screening -transfusion for hemoglobin less than 7, also can consider iron infusion if not getting transfused -consider starting daily oral iron postop Time Spent With Patient Critical Care time: I spent a total of [] minutes of critical care time on this patient's care today; this time is exclusive of procedural time. Quality VTE Deep Vein Thrombosis/Pulmonary Embolism Present on Admission: No
[2022-10-21] MEDS: OXYCODONE IR 10 MG TABLET PO ×2 (17:33→20:35)
[2022-10-21] MEDS: ATORVASTATIN 20 MG TABLET 80 MG PO (20:35)
[2022-10-21] MEDS: DOCUSATE 100 MG CAPSULE PO (20:35)
[2022-10-22] VITALS (16 sets, daily range): BP systolic 98–151; BP diastolic 57–90; PULSE 64–91; RESP 14–20; TEMP 35.9–36.9; O2SAT 90–96; BMI 28.3
--- NOTE | 2022-10-22 | DI.RAD.S_ITS ---
PROCEDURE: XR HIP W PEL IF DONE LT 2V INDICATIONS: LEFT HIP FRACTURE REPAIR TECHNIQUE: 3 intraoperative spot views of the hip were acquired. COMPARISON: None. FINDINGS: Bones: ORIF of the left hip. Soft tissues: No suspicious soft tissue calcifications or masses. IMPRESSION: Intraoperative imaging obtained during left hip ORIF. Dictated by: Andi Quispe M.D. on 10/22/2022 at 16:37 Approved by: Andi Quispe M.D. on 10/22/2022 at 16:37
--- NOTE | 2022-10-22 | PATH_ITS ---
[facility] Accession Number: [id number] No. of containers..01 Tissue . 01 Material submitted: . bone - LEFT GREATER TROCHANTER CALCIFICATIONS . 01 Clinical history: . HIP FRACTURE, PAIN MANAGMENT . 01 Diagnosis: Left Greater Trochanter Calcifications, Excisions: Fragments of trabecular bone with evidence of remodeling, granulation tissue, osteonecrosis, and interspersed marrow fibrosis with associated fibroconnective tissue with degenerative changes; see note. . Note: The overall findings appear reactive/degenerative in nature and are consistent with the site of prior fracture. Clinical correlation is recommended. MRV 10/29/2022 1355 Local . 01 Comment: This case has been reviewed with Dr. Lesly Arriaga, who agrees with the above diagnosis. . 01 Electronically signed: . Ivan Corral MD, Dermatopathologist NPI- [id number] . 01 Gross description: . The specimen is received in formalin labeled with the patient's name, , and L greater trochanter calcification, and consists of multiple wasserman to yellow gritty tissue fragments aggregating to 2.8 x 2.2 x 0.7 cm. Several small hard fragments are identified, possibly consistent with calcification. The specimen is submitted entirely in cassettes A1-A3 following decalcification. ([id number]) /MRV 10/23/2022 1239 Local . 01 Pathologist provided ICD-10: S72.002B . 01 CPT . 688219, [id number] Specimen Comment: A courtesy copy of this report has been sent to [facility] Pathology Performed at: 01 [facility] [address] [place] [address] [address] [facility], [place], [place] [id number] MD Connor Gamboa MD Phone: [phone]
[2022-10-22] MEDS: cefTRIAXone 1,000 MG in SODIUM CHLORIDE 0.9% 100 ML 200 MG IV (02:09)
--- NOTE | 2022-10-22 04:24 | PC.NURSE ---
Pt is AxOx4, needs 2 person assistance and cooperative. VSS, pt c/o pain LLE and recieved PRN Oxy 10mg at bedtime with good effect. Pt has lucero and it is draining moderate amt of yellow urine. Pt is NPO since midnight. No other changes. Continue monitor.
[2022-10-22] MEDS: CEFAZOLIN 2 GM/100 ML PREMIX 100 ML IV ×2 (05:09→15:05)
[2022-10-22] MEDS: CELECOXIB 200 MG CAPSULE PO (05:09)
[2022-10-22] MEDS: PREGABALIN 75 MG CAPSULE PO (05:09)
[2022-10-22] MEDS: ACETAMINOPHEN 325 MG TABLET 975 MG PO (05:09)
[2022-10-22] MEDS: OXYCODONE IR 10 MG TABLET PO ×3 (06:08→22:08)
[2022-10-22 07:10] LABS: Add Manual Diff / Slide Review NO; Basophils Absolute Auto 100 /uL (0-100); Basophils Percent Auto 0.8 % (0-2); Eosinophils Absolute Auto 300 /uL (0-450); Eosinophils Percent Auto 3.1 % (2-4); Hematocrit 23.4 % (36-46); Hemoglobin 7.6 g/dL (12.0-16.0); Lymphocytes Absolute Auto 1000 /uL (1100-4500); Lymphocytes Percent Auto 9.1 % (25-40); Mean Corpuscular HGB Conc 32.5 % (30-36); Mean Corpuscular Hemoglobin 30.8 PG (26-34); Mean Corpuscular Volume 94.9 fL (80-100); Monocytes Absolute Auto 900 /uL (0-900); Monocytes Percent Auto 8.3 % (3-14); Neutrophils Absolute Auto 8700 /uL (1500-7000); Neutrophils Percent Auto 78.7 % (50-75); Platelet Count 459 X10^3/uL (150-400); Red Blood Cell Count 2.46 X10^6/uL (4.0-5.2); Red Cell Distribution Width 17.2 % (11.6-14.8)
[2022-10-22 07:35] LABS: Alanine Aminotransferase 55 IU/L (<35); Albumin 2.9 g/dL (3.5-5.0); Albumin Globulin Ratio 1.1 (1.0-2.8); Alkaline Phosphatase 114 U/L (38-126); Aspartate Aminotransferase 47 IU/L (14-36); BUN Creatinine Ratio 12.7 (6-22); Bilirubin Total 0.4 mg/dL (0.2-1.3); Blood Urea Nitrogen 9 mg/dL (7-17); Calcium 8.8 mg/dL (8.4-10.2); Carbon Dioxide 29 mmol/L (22-32); Chloride 103 mmol/L (98-107); Estimated Glomerular Filt Rate > 60 mL/min (>60); Globulin 2.6 g/dL (1.7-4.1); Glucose 107 mg/dL (80-110); HEMOLYSIS < 15 (0-50); Magnesium 1.9 mg/dL (1.6-2.3); Potassium 3.7 mmol/L (3.4-5.1); Sodium 136 mmol/L (137-145); Total Protein 5.5 g/dL (6.3-8.2)
[2022-10-22] MEDS: HYDROMORPHONE 0.5 MG INJ IV ×2 (07:55→13:19)
--- NOTE | 2022-10-22 08:40 | P.PN_ITS ---
Subjective Subjective Date Patient Seen: 10/22/22 Interval history: Patient awaiting surgery later today. Her pain is currently manageable. Exam Vital Signs (past 8 hours): - 10/22/22 03:20 Temperature 96.8 F L Pulse Rate 83 Respiratory Rate 17 Blood Pressure 126/63 Pulse Oximetry 92 Oxygen Flow Rate 0 Oxygen Delivery Method Room Air Oxygen Flow Rate 0 Narrative Exam Narrative: General: Alert cooperative female appears comfortable Lungs: Clear Heart: Regular rhythm Abdomen: Soft Extremities: Left hip externally rotated, no distal edema Neurological: Speech fluent, well oriented Objective Labs Result Diagrams: 10/22/22 14:38 10/22/22 06:59 Labs: Laboratory Results - last 24 hr 10/21/22 10/21/22 10/22/22 06:40 06:40 06:59 WBC 11.0 RBC 2.46 L Hgb 7.6 L Hct 23.4 L MCV 94.9 MCH 30.8 MCHC 32.5 RDW 17.2 H Plt Count 459 H Neut % (Auto) 78.7 H Lymph % (Auto) 9.1 L Ashley % (Auto) 8.3 Eos % (Auto) 3.1 Baso % (Auto) 0.8 Neut # (Auto) 8700 H Lymph # (Auto) 1000 L Ashley # (Auto) 900 Eos # (Auto) 300 Baso # (Auto) 100 Iron 29 L TIBC 211 L % Saturation 14 L Transferrin 148 L Ferritin 71 PFSH Medical History Arthritis CAD (coronary artery disease) COPD (chronic obstructive pulmonary disease) Cyanosis Depression Diarrhea Fall from ground level (10/03/19) Frequent UTI GERD (gastroesophageal reflux disease) Herpes simplex HLD (hyperlipidemia) HTN (hypertension) Humeral head fracture Itchy skin Macular degeneration of left eye Myocardial infarction (~2002) Osteoarthritis Stroke Surgical contraindication to anticoagulation therapy Synovial cyst of popliteal space [Ramírez], left knee Wedge compression fracture of thoracic vertebra Surgical History History of bilateral tubal ligation (~1979) Hx of appendectomy Hx of bilateral cataract extraction (~2013) Hx of heart artery stent (~2002) S/P tonsillectomy and adenoidectomy Social History household members: other Smoking Status: Former smoker alcohol intake: current Assessment & Plan Assessment & Plan narrative: 1. Left inter trochanteric fracture, recent, present on admission -patient awaiting surgery on 10/22, Dr. Foster consulting for ortho -oxycodone po, hydromorphone IV as needed 2. Pathological pelvic CT findings with concern for myeloma -CT findings of underlying bone lucencies possibly pathologic -bone biopsy would be helpful -ordered screening blood work for myeloma, returned with normal [place]/lamda ratio. Immunoglobulins pending -patient has unexplained anemia in 7's, although no normal Cr, calcium and serum protein 3. Essential hypertension -continue amlodipine and lisinopril per home routine 4. Dyslipidemia -continue atorvastatin per home routine 5. History of CAD -resume ASA postop 6. Urinary tract infection -abnormal UA consistent with UTI -Rocephin 1 g q.d. x 3 days 7. Anemia, iron deficiency -hemoglobin 7.8 on admission -transferrin saturation 14 consistent with some degree iron deficiency -additionally ordered S IEP and serum light chains for myeloma screening -transfusion for hemoglobin less than 7, also can consider iron infusion if not getting transfused -consider starting daily oral iron postop Dispo: Lik[facility] to [facility] on 10/23. Time Spent With Patient Critical Care time: I spent a total of [] minutes of critical care time on this patient's care today; this time is exclusive of procedural time. Quality VTE Deep Vein Thrombosis/Pulmonary Embolism Present on Admission: No
[2022-10-22] MEDS: PANTOPRAZOLE DR 40 MG TABLET PO (08:43)
[2022-10-22] MEDS: lisinopriL 20 MG TABLET PO (08:43)
[2022-10-22] MEDS: DOCUSATE 100 MG CAPSULE PO ×2 (08:43→21:17)
[2022-10-22] MEDS: carvediloL 3.125 MG TABLET 6.25 MG PO (08:43)
--- NOTE | 2022-10-22 13:21 | CM.DPC ---
DCP: Left VM with Bren at [facility] to set up a tentative plan for transportation for pt back to the facility tomorrow. Awaiting a call back. Eileen Jordan RN Case Manager
--- NOTE | 2022-10-22 13:47 | PC.NURSE ---
Day shift: Pt left unit and is headed to pre-op area for surgery soon. Off AC unit at approx 1350.
[2022-10-22] MEDS: LACTATED RINGERS 1,000 ML 100 ML IV (14:01)
[2022-10-22 14:10] LABS: Free Kappa Lt Chains, Serum 23.6 mg/L (3.3-19.4); Free Lambda Lt Chains,Serum 15.6 mg/L (5.7-26.3)
[2022-10-22 14:47] LABS: Hematocrit 23.4 % (36-46); Hemoglobin 7.6 g/dL (12.0-16.0); Mean Corpuscular HGB Conc 32.7 % (30-36); Mean Corpuscular Hemoglobin 31.3 PG (26-34); Mean Corpuscular Volume 95.9 fL (80-100); Platelet Count 452 X10^3/uL (150-400); Red Blood Cell Count 2.44 X10^6/uL (4.0-5.2); Red Cell Distribution Width 17.3 % (11.6-14.8); White Blood Cell Count 9.7 X10^3/uL (4.5-11.0)
--- NOTE | 2022-10-22 15:04 | SUR.HOLD ---
Dr Foster at bedside and notified that pt's pulses on her left foot was difficult to palpate and she had pitting edema. Dr Foster assessed pt and no new orders given.
[2022-10-22] MEDS: TRANEXAMIC ACID 1,000 MG VIAL 1000 MG INJ (15:15)
--- NOTE | 2022-10-22 15:47 | SUR.OPER ---
Supine on padded [place] table with bilateral legs secured in padded positioning boots and suspended in positioning spars, operative leg in traction per surgeon. Head on one pillow. Arm on non-operative side secured on padded armboard <90 degrees abduction. Arm on operative side padded and resting across chest then secured with tape over sheet. Padded perineal post in place per surgeon.
[2022-10-22 16:18] LABS: INR 1.2 (0.9-1.3); Prothrombin Time 13.7 SECONDS (10.1-12.7)
--- NOTE | 2022-10-22 16:54 | P.OP_ITS ---
Operative Date/Time/Diagnoses Date of procedure: 10/22/22 Time of procedure: 16:54 Pre-op diagnosis: Left intertrochanteric femur fracture Post-op diagnosis: same Procedure & Clinicians Procedure: Intramedullary nail left hip Same procedure as scheduled: Yes Indications: This is an 81-year-old female who sustained a left intertrochanteric femur fracture. We discussed that in order to facilitate early mobilization operative fixation would be indicated. Risks and benefits of the surgery were discussed with her at length including risk of infection, damage to internal structures bleeding, hardware failure, revision surgery, . She expressed understanding with these risks and wished to go forward with surgery. Surgeon: Jimi Foster Click Yes if Unassisted: Yes Anesthesia Type: General Operative Notes Findings: Left intertrochanteric femur fracture as noted on fluoroscopy, this was reducible traction Closure Type: primary Specimen(s): other (Readings of the greater trochanter were sent permanent sections) Prosthetic devices, grafts, tissues, transplants, or devices: Esposito and nephew 13 mm short InterTAN Estimated Blood Loss (mL): 50 Blood products transfused: none Procedure in detail: Details of operation: The patient's identity was verified. The left hip was verified and site of surgery was markedd. Prophylactic antibiotics were administered. The patient was taken to the operating room and anesthesia was established. Patient was positioned supine on the operating table. The feet were padded and placed into the traction boots with the injured hip in slight adduction and the uninjured hip extended about 30?. A C-arm was then brought into the OR and positioned perpendicularly to allow visualization of the hip and AP and lateral planes. The fracture was reduced by applying longitudinal traction and internal rotation and a small amount of adduction. The lateral surface of the hip was sterilely prepped after which a vertical isolation drape was placed. The surgical team paused in the patient's identity, surgical procedure and surgical site were verified. A small incision was made proximal to the greater trochanter through the fascia to the tip of the trochanter could be palpated. A threaded guide pin was then inserted through the tip of the greater trochanter to the level of the lesser tuberosity. Once the wire was appropriately positioned the entry hole was drilled. The entry/channel Reamer was used to enter the cortex and reamed the metaphyseal portion of the canal. The intramedullary nail was assembled on the insertion handle and the nail was inserted and its depth verified. Our attention was then turned to the proximal locking of the nail. A small incision was made laterally over the distal vastus tubercle, through the fascia down to the bone and the targeting jig sleeve was advanced to the bone. Under fluoroscopic control, a guidewire was positioned through the lateral cortex of the femoral neck and into the center of the femoral head. Once the wire was appropriately positioned, the length of nail was measured the lateral cortex was opened with a drill. The lag screw was assembled on the insertion handle and advanced over the guidewire into the center of the femoral head to beneath the subchondral surface. The compression screw was then placed in compressed under fluoroscopic imaging. Final AP and lateral projections were taken confirming correct nail and screw placement. Our attention was then directed distally to the interlocking of the nail. An incision was made and the guide was used to place the sleeve down to the bone. The bone was then drilled and measured and interlocking screw was placed. The wounds were copiously irrigated. The subcutaneous area was closed with interrupted 2-0 Vicryl. The wound was then infiltrated with 0.5% lidocaine with epinephrine. The skin was then closed with agustin after which a sterile dressing was applied. Patient was subsequently transferred from the [place] table to the hospital bed. Disposition: The patient was taken to the recovery room in stable condition having tolerated the procedure without difficulty. Complications: none Post-operative Condition: stable Disposition: Acute Care Plan for aftercare: Postoperative plan: Weightbearing as tolerated with crutches or walker for 4 weeks. After 4 weeks it is okay to ambulate without assistance if stable and strong enough. DVT prophylaxis for 4 weeks (default aspirin 81 mg b.i.d., is unable to take aspirin, and then Lovenox, 40 mg subcutaneous daily). Okay to change dressings to clean dry dressings after 3 days. Okay for dressings to c ome off completely at 7 days. Okay for warm soap and water to run over the incision and a shower or sponge bath, however no soaking the wound. Follow-up in 2 weeks with a ALTON for staple removal, and follow-up in [address] oFster with x-rays on arrival
[2022-10-22] MEDS: OXYCODONE/ACETAMINOPHEN 5/325 TABLET 1 TAB PO (17:01)
--- NOTE | 2022-10-22 17:02 | SUR.PHASEI ---
patient reported left calf throbbing 6/10. No erythema or edema noted. Dr. Foster notified. No new orders.
[2022-10-22] MEDS: HYDROMORPHONE 2 MG INJ IV (17:06)
--- NOTE | 2022-10-22 17:09 | SUR.PHASEI ---
report given to
--- NOTE | 2022-10-22 17:44 | PC.NURSE ---
Day shift: Pt back in room at approx 1745 from PACU/surgery/ LEft hip dressing (2 of them) are CDI. CMS ok. Can wiggle toes. PPP also. Call light in reach. Daughter in room for support. Denies any nausea. Denies any pain at this time.
[2022-10-22] MEDS: LACTATED RINGERS 1,000 ML 120 ML IV (18:01)
--- NOTE | 2022-10-22 18:03 | SUR.PHASEI ---
Per policy all PACU meds ordered by Anesthesia discontinued upon transfer to Acute Care.
[2022-10-22] MEDS: GABAPENTIN 400 MG CAPSULE PO (21:17)
[2022-10-22] MEDS: cilostazoL 50 MG TABLET PO (21:17)
[2022-10-22] MEDS: ATORVASTATIN 20 MG TABLET 80 MG PO (21:17)
[2022-10-22] MEDS: ACETAMINOPHEN 325 MG TABLET 650 MG PO (22:08)
[2022-10-22] MEDS: SODIUM CHLORIDE 0.9% FLUSH 10 ML IV (22:09)
[2022-10-23] VITALS (8 sets, daily range): BP systolic 105–155; BP diastolic 50–85; PULSE 82–89; RESP 16–17; TEMP 36–37.3; O2SAT 91–96
[2022-10-23] MEDS: LACTATED RINGERS 1,000 ML 120 ML IV (02:10)
[2022-10-23] MEDS: cefTRIAXone 1,000 MG in SODIUM CHLORIDE 0.9% 100 ML 200 MG IV (02:10)
--- NOTE | 2022-10-23 07:14 | P.PN_ITS ---
Subjective Subjective Date Patient Seen: 10/23/22 Time Patient Seen: 07:14 Interval history: Fever or chills. No nausea or vomiting. Exam Vital Signs (past 8 hours): - 10/23/22 02:45 10/23/22 06:20 10/23/22 06:20 Temperature 98.6 F 99.1 F Pulse Rate 83 82 Respiratory Rate 17 16 Blood Pressure 137/62 127/65 Pulse Oximetry 96 91 91 Oxygen Flow Rate 0 1 1 Oxygen Delivery Method Nasal Cannula Oxygen Flow Rate 1 Narrative Exam Narrative: Year old female resting comfortably in bed in no apparent distress. Left hip dressings are clean, dry and intact. Motor functions intact bilateral lower extremities. Sensation grossly intact to light touch bilateral lower extremities. Const General: cooperative and comfortable Nutritional Appearance: average body habitus Resp Effort & Inspection: normal respiratory effort Objective Labs Result Diagrams: 10/22/22 14:38 10/22/22 06:59 Labs: Laboratory Results - last 24 hr 10/21/22 10/22/22 10/22/22 06:40 06:59 06:59 WBC 11.0 RBC 2.46 L Hgb 7.6 L Hct 23.4 L MCV 94.9 MCH 30.8 MCHC 32.5 RDW 17.2 H Plt Count 459 H Neut % (Auto) 78.7 H Lymph % (Auto) 9.1 L Real % (Auto) 8.3 Eos % (Auto) 3.1 Baso % (Auto) 0.8 Neut # (Auto) 8700 H Lymph # (Auto) 1000 L Real # (Auto) 900 Eos # (Auto) 300 Baso # (Auto) 100 PT INR Sodium 136 L Potassium 3.7 Chloride 103 Carbon Dioxide 29 BUN 9 Creatinine 0.71 Estimated GFR > 60 BUN/Creatinine Ratio 12.7 Glucose 107 Calcium 8.8 Magnesium 1.9 Total Bilirubin 0.4 AST 47 H ALT 55 H Alkaline Phosphatase 114 Total Protein 5.5 L Albumin 2.9 L Globulin 2.6 Albumin/Globulin Ratio 1.1 Free [place] Light Chains 23.6 H Free Lambda Light Chain 15.6 Free [place]/Lambda Ratio 1.51 Blood Type Antibody Screen Crossmatch 10/22/22 10/22/22 10/22/22 14:38 14:38 16:00 WBC 9.7 RBC 2.44 L Hgb 7.6 L Hct 23.4 L MCV 95.9 MCH 31.3 MCHC 32.7 RDW 17.3 H Plt Count 452 H Neut % (Auto) Lymph % (Auto) Real % (Auto) Eos % (Auto) Baso % (Auto) Neut # (Auto) Lymph # (Auto) Real # (Auto) Eos # (Auto) Baso # (Auto) PT 13.7 H INR 1.2 Sodium Potassium Chloride Carbon Dioxide BUN Creatinine Estimated GFR BUN/Creatinine Ratio Glucose Calcium Magnesium Total Bilirubin AST ALT Alkaline Phosphatase Total Protein Albumin Globulin Albumin/Globulin Ratio Free [place] Light Chains Free Lambda Light Chain Free [place]/Lambda Ratio Blood Type O Positive Antibody Screen Negative Crossmatch See Detail [facility] Medical History Arthritis CAD (coronary artery disease) COPD (chronic obstructive pulmonary disease) Cyanosis Depression Diarrhea Fall from ground level (10/03/19) Frequent UTI GERD (gastroesophageal reflux disease) Herpes simplex HLD (hyperlipidemia) HTN (hypertension) Humeral head fracture Itchy skin Macular degeneration of left eye Myocardial infarction (~2002) Osteoarthritis Stroke Surgical contraindication to anticoagulation therapy Synovial cyst of popliteal space [Rmaírez], left knee Wedge compression fracture of thoracic vertebra Surgical History History of bilateral tubal ligation (~1979) Hx of appendectomy Hx of bilateral cataract extraction (~2013) Hx of heart artery stent (~2002) S/P tonsillectomy and adenoidectomy Social History household members: other Smoking Status: Former smoker alcohol intake: current Assessment & Plan Post-op Postoperative Procedures: Procedures Operation Date: 10/22/22 15:00 Actual Procedure Side Surgeon p Intramedullary Nailing Femur Left Jimi Foster MD Postoperative day: 1 Postoperative status: doing well Postoperative status narrative: Patient is stable status post intramedullary nail left hip October 22, 2022 Postoperative plan narrative: Weightbearing as tolerated with crutches or walker for 4 weeks. After 4 weeks it is okay to ambulate without assistance if stable and strong enough. DVT prophylaxis for 4 weeks (default aspirin 81 mg b.i.d., is unable to take aspirin, and then Lovenox, 40 mg subcutaneous daily). Okay to change dressings to clean dry dressings after 3 days. Okay for dressings to come off completely at 7 days. Okay for warm soap and water to run over the incision and a shower or sponge bath, however no soaking the wound. Follow-up in 2 weeks with a PA for staple removal, and follow-up in [address] Foster with x-rays on arrival Quality VTE Deep Vein Thrombosis/Pulmonary Embolism Present on Admission: No
--- NOTE | 2022-10-23 07:36 | PM.DS.1 ---
History of Present Illness History of Present Illness Date Patient Seen: 10/23/22 Time Patient Seen: 23:50 Chief complaint: hip fracture, pain managment Narrative: Prisca Medina is an 81-year-old female with hypertension and hyperlipidemia, presented from the from orthopedic office with a left hip fracture.? Limited history provided by the patient, but consistent w/ED note. Patient had been accepted for admission prior to shift change. Per the ED note, she was seen and evaluated at [facility][1] on [address] [place] after a fall.? She actually had multiple visits to [facility][1] she had a CT there at 1 of the visits all confirming a greater trochanteric fracture.? It is thought that might be a pathologic fracture not meeting admission criteria.? Arrangements were made for her to go to [facility].? She has been nonweightbearing and in a wheelchair most of the time.? She has not had any follow-up or repeat imaging until today.? She was at orthopedics office and found to have a femoral neck fracture at which point she was put in an ambulance and sent to the ED. she denies any further fall since the initial fall. Patient reports that she is having increased pain and muscle spasm mostly worse since yesterday and last night.? She is been getting around by wheelchair.? She denies any other injuries.?She does endorse a history of a loop recorder implantation and removal by Dr. 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 She is unable to meaningfully participate in a review of systems. She stated that she felt like she was vulnerable here and wants to go home. And thought that the orthopedic doctor she saw was ?strange?. Pelvis CT ordered and today's ED visit did report a ?comminuted displaced and angulated left hip fracture in the basic cervical region worse than prior from October 06. There was question as to whether was pathologic. Discussion was held with Dr. Foster, orthopedic surgery and he plans to take her into the OR in the morning. She is afebrile, blood pressure 160/82 heart rate 105 respiratory rate 19 oxygen saturation 98% on room air she weighs 75 kg with a BMI of 28.3. She has a mildly elevated white count at 11.9 hemoglobin 7.8 hematocrit 23.6 platelet count 544 she has a mild left shift 9600, sodium 135 glucose 119 AST 60 ALT 65 albumin is 3.2 her UA was positive for UTI and will be sent out for culture COVID-19 PCR is negative and she is O-positive blood type. FH: Mother age 81 she had ALS, father was 79 apparently had multiple CVAs and dementia, she has a sister age 70 who is alive and has had a history of breast cancer. Discharge Providers Provider Date of admission: 10/20/22 18:25 Discharge Date: 10/23/22 Primary care physician: Jose Vigil MD Consults: 10/20/22 21:16 Consult to Physician Routine Comment: Consulting Provider: Jimi Foster Reason for consultation: left hip fx Has provider been notified: Yes 10/22/22 06:00 Consult to Anesthesiology Routine Comment: Consulting Provider: Anesthesiologist Reason for consultation: Regional block for post operative pain control Discharge provider: Berhane Beckford DO Summary Hospital Course Discharge Diagnosis: 1. Left inter trochanteric fracture, recent, present on admission -patient underwent surgery on 10/22, Dr. Foster consulting for ortho -oxycodone po, hydromorphone IV as needed -PT rec SNF 2. Pathological pelvic CT findings with concern for myeloma -CT findings of underlying bone lucencies possibly pathologic -bone biopsy would be helpful -ordered screening blood work for myeloma, returned with normal [place]/lamda ratio. Immunoglobulins pending. -patient has unexplained anemia in 7's, although no normal Cr, calcium and serum protein -recommend outpatient f/u with PCP 3.? Essential hypertension -continue amlodipine and lisinopril per home routine 4.? Dyslipidemia -continue atorvastatin per home routine 5.? History of CAD -resume ASA postop 6. Urinary tract infection -abnormal UA consistent with UTI -Rocephin 1 g q.d. x 3 days given 7. Anemia, iron deficiency -hemoglobin 7.8 on admission -transferrin saturation 14 consistent with some degree iron deficiency -additionally ordered S IEP and serum light chains for myeloma screening -transfusion for hemoglobin less than 7, also can consider iron infusion if not getting transfused -consider starting daily oral iron as outpatient -dropped to 7.3 postop so given 1 unit PRBC Hospital Course: Admitted for fall resulting in left hip fracture. Underwent surgical repair with ortho on 10/22 and did well postop other than Hgb 7.3 so given 1 unit PRBC. Had lytic lesions noted on pelvis xray suspicious for possible myeloma, however kappa/lambda ratio including other markers above were normal which did not suggest MM. Received 3 days of IV rocephin for UTI. Time Spent with Patient Time spent: Greater than 30 minutes Exam Vital Signs (past 8 hours): - 10/23/22 02:45 10/23/22 06:20 10/23/22 06:20 Temperature 98.6 F 99.1 F Pulse Rate 83 82 Respiratory Rate 17 16 Blood Pressure 137/62 127/65 Pulse Oximetry 96 91 91 Oxygen Flow Rate 0 1 1 Oxygen Delivery Method Nasal Cannula Oxygen Flow Rate 1 Narrative Exam Narrative: General: Alert cooperative female appears comfortable Lungs: Clear Heart: Regular rhythm Abdomen: Soft Extremities: Dressing on left hip, no distal edema Neurological: Speech fluent, well oriented Objective Labs Result Diagrams: 10/23/22 07:10 10/23/22 07:10 Labs: Laboratory Results - last 24 hr 10/21/22 10/22/22 10/22/22 06:40 06:59 14:38 WBC 9.7 RBC 2.44 L Hgb 7.6 L Hct 23.4 L MCV 95.9 MCH 31.3 MCHC 32.7 RDW 17.3 H Plt Count 452 H PT INR Sodium 136 L Potassium 3.7 Chloride 103 Carbon Dioxide 29 BUN 9 Creatinine 0.71 Estimated GFR > 60 BUN/Creatinine Ratio 12.7 Glucose 107 Calcium 8.8 Magnesium 1.9 Total Bilirubin 0.4 AST 47 H ALT 55 H Alkaline Phosphatase 114 Total Protein 5.5 L Albumin 2.9 L Globulin 2.6 Albumin/Globulin Ratio 1.1 Free [place] Light Chains 23.6 H Free Lambda Light Chain 15.6 Free [place]/Lambda Ratio 1.51 Blood Type Antibody Screen Crossmatch 10/22/22 10/22/22 14:38 16:00 WBC RBC Hgb Hct MCV MCH MCHC RDW Plt Count PT 13.7 H INR 1.2 Sodium Potassium Chloride Carbon Dioxide BUN Creatinine Estimated GFR BUN/Creatinine Ratio Glucose Calcium Magnesium Total Bilirubin AST ALT Alkaline Phosphatase Total Protein Albumin Globulin Albumin/Globulin Ratio Free [place] Light Chains Free Lambda Light Chain Free [place]/Lambda Ratio Blood Type O Positive Antibody Screen Negative Crossmatch See Detail [facility] Medical History Arthritis CAD (coronary artery disease) COPD (chronic obstructive pulmonary disease) Cyanosis Depression Diarrhea Fall from ground level (10/03/19) Frequent UTI GERD (gastroesophageal reflux disease) Herpes simplex HLD (hyperlipidemia) HTN (hypertension) Humeral head fracture Itchy skin Macular degeneration of left eye Myocardial infarction (~2002) Osteoarthritis Stroke Surgical contraindication to anticoagulation therapy Synovial cyst of popliteal space [Ramírez], left knee Wedge compression fracture of thoracic vertebra Surgical History History of bilateral tubal ligation (~1979) Hx of appendectomy Hx of bilateral cataract extraction (~2013) Hx of heart artery stent (~2002) S/P tonsillectomy and adenoidectomy Social History household members: other Smoking Status: Former smoker alcohol intake: current Discharge Plan Discharge Plan Patient Disposition: SNF Discharge orders & Medications Prescriptions: New oxycodone 10 mg Tablet 10 mg PO Q3HR PRN (Reason: Pain, Severe (7-10)) Qty: 30 0RF Continued Fish Oil 1,000 mg 1,000 mg BID Multi Vitamin 1 tab PO DAILY PreserVision AREDS 1 drp EYE-BOTH BID atorvastatin 80 mg 80 mg PO BEDTIME trazodone 100 mg 100 mg BEDTIME acetaminophen 500 mg tablet 500 mg PO QID PRN (Reason: Pain (Scale Score 4-6)) Label Comments: TAKE ONE TABLET BY MOUTH FOUR TIMES DAILY NEEDED FOR PAIN amlodipine 5 mg tablet 5 mg PO DAILY Label Comments: TAKE ONE TABLET BY MOUTH ONE TIME DAILY cilostazol 50 mg tablet 50 mg PO BID Label Comments: TAKE ONE TABLET BY MOUTH TWICE DAILY diphenoxylate-atropine 2.5-0.025 mg tablet 1 - 2 tab PO QID PRN (Reason: Diarrhea) Label Comments: Take 1-2 tabletS by mouth four times a day as needed Max OF 8 TABLETS PER day DO NOT TAKE WITH NALTREXONE naltrexone 50 mg Tablet 50 mg PO DAILY meloxicam 7.5 mg Tablet 7.5 mg PO DAILY hydromorphone [Dilaudid] 2 mg Tablet 2 mg PO Q6H PRN (Reason: Pain (Scale Score 4-6)) lisinopril 5 mg Tablet 5 mg PO DAILY oxycodone 5 mg Tablet 5 mg PO Q8H PRN (Reason: Pain (Scale Score 4-6)) gabapentin 100 mg Tablet 400 mg PO BEDTIME Changed Aspir-81 81 mg 81 mg PO BID 42 Days Qty: 90 0RF Follow up/Referrals: Jose Vigil MD [Primary Care Provider] - Visit Report/Discharge Packet Stand Alone Forms: Patient Portal/API Discharge Data Primary Care Provider: Jose Vigil Quality VTE Deep Vein Thrombosis/Pulmonary Embolism Present on Admission: No
[2022-10-23 08:00] LABS: Add Manual Diff / Slide Review NO; Basophils Absolute Auto 100 /uL (0-100); Basophils Percent Auto 0.7 % (0-2); Eosinophils Absolute Auto 400 /uL (0-450); Eosinophils Percent Auto 3.8 % (2-4); Hematocrit 22.1 % (36-46); Hemoglobin 7.3 g/dL (12.0-16.0); Lymphocytes Absolute Auto 1100 /uL (1100-4500); Mean Corpuscular HGB Conc 32.8 % (30-36); Mean Corpuscular Hemoglobin 31.1 PG (26-34); Mean Corpuscular Volume 94.9 fL (80-100); Monocytes Absolute Auto 900 /uL (0-900); Monocytes Percent Auto 9.1 % (3-14); Neutrophils Absolute Auto 7100 /uL (1500-7000); Neutrophils Percent Auto 74.4 % (50-75); Platelet Count 395 X10^3/uL (150-400); Red Blood Cell Count 2.33 X10^6/uL (4.0-5.2); Red Cell Distribution Width 17.5 % (11.6-14.8); White Blood Cell Count 9.6 X10^3/uL (4.5-11.0)
[2022-10-23] MEDS: carvediloL 3.125 MG TABLET 6.25 MG PO (08:00)
[2022-10-23] MEDS: cilostazoL 50 MG TABLET PO (08:01)
[2022-10-23] MEDS: lisinopriL 20 MG TABLET PO (08:01)
[2022-10-23] MEDS: DOCUSATE 100 MG CAPSULE PO (08:01)
[2022-10-23] MEDS: OXYCODONE IR 10 MG TABLET PO ×2 (08:01→11:33)
[2022-10-23] MEDS: PANTOPRAZOLE DR 40 MG TABLET PO (08:01)
[2022-10-23] MEDS: SODIUM CHLORIDE 0.9% FLUSH 10 ML IV (08:02)
[2022-10-23 08:17] LABS: Magnesium 1.8 mg/dL (1.6-2.3)
--- NOTE | 2022-10-23 08:40 | CM.DPC ---
DCP: This DCP called and spoke with Daniel on [facility] re. patient to discharge back to their facility this am as we have discharge orders. Left VM with Brigette General Internist and Bren account services coordinator re. need for transportation this am. Sofia, Turn Supervisor will let them know when they get into the building. LAXMI updated of plan. Eileen Jordan, director index
[2022-10-23 08:43] LABS: BUN Creatinine Ratio 16.9 (6-22); Blood Urea Nitrogen 11 mg/dL (7-17); Calcium 8.7 mg/dL (8.4-10.2); Carbon Dioxide 28 mmol/L (22-32); Chloride 102 mmol/L (98-107); Estimated Glomerular Filt Rate > 60 mL/min (>60); Glucose 96 mg/dL (80-110); HEMOLYSIS < 15 (0-50); Potassium 3.8 mmol/L (3.4-5.1); Sodium 136 mmol/L (137-145)
[2022-10-23 12:10] LABS: COVID19 -Nasal RAPID Negative (Negative)
--- NOTE | 2022-10-23 13:14 | PC.NURSE ---
Day shift: Pt left unit at approx 1315 via WC.. Heading back to SNF she came from. She has all personal belongings. SNF packet given to transport person. The 1 unit of PRBC's was completed w/o incident. Hip dressing remains CDI. RA 95%. VS WNL.
--- NOTE | 2022-10-23 13:22 | PC.NURSE ---
Day shift: Called Pt's SNF and it went to voicemail. Left a message and this hospital number. Done at 1320.
[2022-10-23 14:37] LABS: Immunoglobulin A, Serum 152 mg/dL (64-422); Immunoglobulin G,Serum 477 mg/dL (586-1602); Immunoglobulin M, Serum 37 mg/dL (26-217)
== END 2022-10-23 13:24 | DRG 481 ==
LOC: ED 17:06 → AC 18:27
PROVIDERS: Anesthesiology; Internal Medicine; Nurse Practitioner Family; Orthopaedic Surgery; Student in an Organized Health Care Education/Training Program; Admitting Provider Neuromusculoskeletal Medicine, Sports Medicine; Emergency Provider Emergency Medicine; PCP Internal Medicine; Referring Provider Emergency Medicine; Visit Provider Neuromusculoskeletal Medicine, Sports Medicine
PROC: 0QS706Z Reposition Left Upper Femur with Intramedullary Internal Fixation Device, Open Approach (ICD-10-PCS; CPT 27245; principal; 2022-10-22 15:00)
DX: S72.142A Displaced intertrochanteric fracture of left femur, initial encounter for closed fracture (principal); N39.0 Urinary tract infection, site not specified; I10 Essential (primary) hypertension; E78.5 Hyperlipidemia, unspecified; I25.10 Atherosclerotic heart disease of native coronary artery without angina pectoris; D50.9 Iron deficiency anemia, unspecified; F32.A Depression, unspecified; W19.XXXA Unspecified fall, initial encounter; Z87.891 Personal history of nicotine dependence; Z20.822 Contact with and (suspected) exposure to COVID-19
CPT/HCPCS: 36415; 36430; 72192; 73502; 76000; 80048; 80053; 81015; 82728; 82784; 83540; 83550; 83735; 83883; 84155; 85025; 85027; 85610; 86334; 86850; 86900; 86901; 87077; 87086; 87186; 87635; 94760; 96374; 96375; 99284; 99285; C9803; P9016; J0690; J0696; J1170; J1200; J2270; J2405; J3010

== ENCOUNTER → 2024-01-27 09:44 | Outpatient (CLI) | payer MEDICARE, OTHER, SELFPAY ==
[2022-10-20 21:55] VITALS: BMI 28.3
== END ==
LOC: WC 09:48
PROVIDERS: PCP Internal Medicine; Referring Provider Nurse Practitioner Family; Visit Provider Surgery
DX: S81.812A Laceration without foreign body, left lower leg, initial encounter (principal); R60.0 Localized edema; I25.10 Atherosclerotic heart disease of native coronary artery without angina pectoris; I10 Essential (primary) hypertension; Z87.891 Personal history of nicotine dependence
CPT/HCPCS: 11042; 99203; 99213

== ENCOUNTER → 2024-02-02 08:39 | Outpatient (CLI) | payer MEDICARE, OTHER, SELFPAY ==
[2022-10-20 21:55] VITALS: BMI 28.3
== END ==
LOC: WC 02-03 08:40
PROVIDERS: PCP Internal Medicine; Referring Provider Nurse Practitioner Family; Visit Provider Surgery
DX: S81.812A Laceration without foreign body, left lower leg, initial encounter (principal); I25.10 Atherosclerotic heart disease of native coronary artery without angina pectoris
CPT/HCPCS: 11042; 97607

== ENCOUNTER → 2024-02-04 12:53 | Outpatient (CLI) | payer MEDICARE, OTHER, SELFPAY ==
[2022-10-20 21:55] VITALS: BMI 28.3
== END ==
PROVIDERS: PCP Internal Medicine; Referring Provider Nurse Practitioner Family; Visit Provider Surgery
DX: S81.812A Laceration without foreign body, left lower leg, initial encounter (principal)
CPT/HCPCS: 97607

== ENCOUNTER → 2024-02-10 11:41 | Outpatient (CLI) | payer MEDICARE, OTHER, SELFPAY ==
[2022-10-20 21:55] VITALS: BMI 28.3
== END ==
LOC: WC 11:44
PROVIDERS: PCP Internal Medicine; Referring Provider Nurse Practitioner Family; Visit Provider Surgery
DX: S81.812A Laceration without foreign body, left lower leg, initial encounter (principal); R60.0 Localized edema; I25.10 Atherosclerotic heart disease of native coronary artery without angina pectoris; I10 Essential (primary) hypertension; M79.662 Pain in left lower leg
CPT/HCPCS: 11042; 97607

== ENCOUNTER → 2024-02-17 11:28 | Outpatient (CLI) | payer MEDICARE, OTHER, SELFPAY ==
[2022-10-20 21:55] VITALS: BMI 28.3
== END ==
LOC: WC 11:40
PROVIDERS: PCP Internal Medicine; Referring Provider Nurse Practitioner Family; Visit Provider Surgery
DX: S81.812A Laceration without foreign body, left lower leg, initial encounter (principal); R60.0 Localized edema; M79.662 Pain in left lower leg; I25.10 Atherosclerotic heart disease of native coronary artery without angina pectoris; I10 Essential (primary) hypertension
CPT/HCPCS: 11042; 97607

== ENCOUNTER → 2024-02-24 13:07 | Outpatient (CLI) | payer MEDICARE, OTHER, SELFPAY ==
[2022-10-20 21:55] VITALS: BMI 28.3
== END ==
LOC: WC 13:08
PROVIDERS: PCP Internal Medicine; Referring Provider Nurse Practitioner Family; Visit Provider Surgery
DX: S81.812A Laceration without foreign body, left lower leg, initial encounter (principal); R60.0 Localized edema; I73.9 Peripheral vascular disease, unspecified; I25.10 Atherosclerotic heart disease of native coronary artery without angina pectoris; I10 Essential (primary) hypertension
CPT/HCPCS: 11042; 97607; 99213

== ENCOUNTER → 2024-03-02 10:48 | Outpatient (CLI) | payer MEDICARE, OTHER, SELFPAY ==
[2022-10-20 21:55] VITALS: BMI 28.3
== END ==
LOC: WC 10:50
PROVIDERS: PCP Internal Medicine; Referring Provider Nurse Practitioner Family; Visit Provider Surgery
DX: S81.802D Unspecified open wound, left lower leg, subsequent encounter (principal); R60.0 Localized edema; I25.10 Atherosclerotic heart disease of native coronary artery without angina pectoris; I10 Essential (primary) hypertension
CPT/HCPCS: 11042

== ENCOUNTER → 2024-03-09 11:23 | Outpatient (CLI) | payer MEDICARE, OTHER, SELFPAY ==
[2022-10-20 21:55] VITALS: BMI 28.3
== END ==
PROVIDERS: PCP Internal Medicine; Referring Provider Nurse Practitioner Family; Visit Provider Surgery
DX: S81.802A Unspecified open wound, left lower leg, initial encounter (principal); R60.0 Localized edema; I10 Essential (primary) hypertension; I25.10 Atherosclerotic heart disease of native coronary artery without angina pectoris
CPT/HCPCS: 15271; Q4160

== ENCOUNTER → 2024-03-16 13:57 | Outpatient (CLI) | payer MEDICARE, OTHER, SELFPAY ==
[2022-10-20 21:55] VITALS: BMI 28.3
== END ==
LOC: WC 14:00
PROVIDERS: PCP Internal Medicine; Referring Provider Nurse Practitioner Family; Visit Provider Surgery
DX: S81.812A Laceration without foreign body, left lower leg, initial encounter (principal); R60.0 Localized edema; I10 Essential (primary) hypertension; I25.10 Atherosclerotic heart disease of native coronary artery without angina pectoris
CPT/HCPCS: 11042

== ENCOUNTER → 2024-03-22 14:20 | Outpatient (CLI) | payer MEDICARE, OTHER, SELFPAY ==
[2022-10-20 21:55] VITALS: BMI 28.3
== END ==
LOC: WC 14:20
PROVIDERS: PCP Internal Medicine; Referring Provider Nurse Practitioner Family; Visit Provider Surgery
DX: S81.802A Unspecified open wound, left lower leg, initial encounter (principal); L92.9 Granulomatous disorder of the skin and subcutaneous tissue, unspecified; R60.0 Localized edema; M79.662 Pain in left lower leg; I10 Essential (primary) hypertension; I25.10 Atherosclerotic heart disease of native coronary artery without angina pectoris
CPT/HCPCS: 17250; 99213

== ENCOUNTER → 2024-03-29 13:34 | Outpatient (CLI) | payer MEDICARE, OTHER, SELFPAY ==
[2022-10-20 21:55] VITALS: BMI 28.3
== END ==
LOC: WC 13:36
PROVIDERS: PCP Internal Medicine; Referring Provider Nurse Practitioner Family; Visit Provider Surgery
DX: S81.802A Unspecified open wound, left lower leg, initial encounter (principal); R23.3 Spontaneous ecchymoses; I48.91 Unspecified atrial fibrillation; I10 Essential (primary) hypertension; I25.10 Atherosclerotic heart disease of native coronary artery without angina pectoris; Z79.01 Long term (current) use of anticoagulants; M79.662 Pain in left lower leg
CPT/HCPCS: 11042; 99213

== ENCOUNTER → 2024-04-06 10:58 | Outpatient (CLI) | payer MEDICARE, OTHER, SELFPAY ==
[2022-10-20 21:55] VITALS: BMI 28.3
== END ==
LOC: WC 10:59
PROVIDERS: PCP Internal Medicine; Referring Provider Nurse Practitioner Family; Visit Provider Surgery
DX: S81.802A Unspecified open wound, left lower leg, initial encounter (principal); L98.8 Other specified disorders of the skin and subcutaneous tissue; R23.3 Spontaneous ecchymoses; R21 Rash and other nonspecific skin eruption; M79.662 Pain in left lower leg; I25.10 Atherosclerotic heart disease of native coronary artery without angina pectoris; I48.91 Unspecified atrial fibrillation; I10 Essential (primary) hypertension
CPT/HCPCS: 11042

== ENCOUNTER → 2024-04-13 10:31 | Outpatient (CLI) | payer MEDICARE, OTHER, SELFPAY ==
[2022-10-20 21:55] VITALS: BMI 28.3
== END ==
LOC: WC 10:33
PROVIDERS: PCP Internal Medicine; Referring Provider Nurse Practitioner Family; Visit Provider Surgery
DX: S81.802A Unspecified open wound, left lower leg, initial encounter (principal); L98.8 Other specified disorders of the skin and subcutaneous tissue; R21 Rash and other nonspecific skin eruption; M79.662 Pain in left lower leg
CPT/HCPCS: 11042; 99213

== ENCOUNTER → 2024-04-13 13:33 | Outpatient (CLI) | payer MEDICARE, OTHER, SELFPAY ==
[2022-10-20 21:55] VITALS: BMI 28.3
--- NOTE | 2024-04-13 15:00 | DI.US.S_ITS ---
PROCEDURE: US PERIPH VENOUS LOW EXTREM LT INDICATIONS: Rule out DVT TECHNIQUE: Real-time imaging, as well as color and pulse Doppler interrogation, were performed of the lower extremity deep veins from the inguinal ligament to the popliteal fossa, with documentation of the visualized calf veins. COMPARISON: None. FINDINGS: The common femoral, femoral, popliteal, and the visualized calf veins are normally compressible, and free of intraluminal thrombus. Color and pulse Doppler demonstrate normal phasic intraluminal flow. There is normal augmentation response to distal compression maneuver. IMPRESSION: No findings of lower extremity deep venous thrombosis. Dictated by: Jorje Levy M.D. on 04/13/2024 at 14:16 Approved by: Jorje Levy M.D. on 04/13/2024 at 14:16
== END ==
LOC: US 13:35
PROVIDERS: PCP Internal Medicine; Referring Provider Surgery; Visit Provider Surgery
DX: S81.802A Unspecified open wound, left lower leg, initial encounter (principal)
CPT/HCPCS: 93971

== ENCOUNTER → 2024-04-13 13:36 | Outpatient (CLI) | payer MEDICARE, OTHER, SELFPAY ==
[2022-10-20 21:55] VITALS: BMI 28.3
--- NOTE | 2024-04-13 13:37 | DI.CT.S_ITS ---
PROCEDURE: CT PEL WO CON INDICATIONS: Unilateral primary osteoarthritis, left hip TECHNIQUE: Noncontrast 3 mm axial sections acquired through the bony pelvis, with coronal and sagittal reformatting. COMPARISON: [facility], CT, CT PEL WO CON, 10/20/2022, 17:01. FINDINGS: Image quality: Diagnostic. Bones: Intramedullary maricel and screw fixation of the left femur. The intratrochanteric fracture demonstrates no bony fusion. Alignment of fracture fragments is near anatomic. Nonuniform joint space narrowing of the left hip, with mild osteophytic lipping of the acetabulum. Soft tissues: Partially visualized renal stones, largest measuring 6 mm on the left. Gallbladder demonstrates contraction with diffuse wall thickening. Colonic diverticulosis without evidence of diverticulitis. Infrarenal aortic aneurysm measuring 3 cm. Small right inguinal hernia containing a short segment loop of small bowel. IMPRESSION: Intramedullary maricel and screw fixation of the left femur, without osseous fusion of the intra-articular fracture. Alignment is anatomic. Bilateral nonobstructing nephrolithiasis. Right inguinal hernia containing a short loop of nonobstructed small bowel. Colonic diverticulosis without evidence of diverticulitis. Infrarenal aortic aneurysm measuring 3.5 cm. Recommend 3 year for follow-up with ultrasound. Dictated by: Guido Hayes M.D. on 04/15/2024 at 8:26 Approved by: Guido Hayes M.D. on 04/15/2024 at 8:29
== END ==
PROVIDERS: PCP Internal Medicine; Referring Provider Orthopaedic Surgery Adult Reconstructive Orthopaedic Surgery; Visit Provider Orthopaedic Surgery Adult Reconstructive Orthopaedic Surgery
DX: S72.142D Displaced intertrochanteric fracture of left femur, subsequent encounter for closed fracture with routine healing (principal); S81.802A Unspecified open wound, left lower leg, initial encounter; M16.12 Unilateral primary osteoarthritis, left hip; N20.0 Calculus of kidney; K57.90 Diverticulosis of intestine, part unspecified, without perforation or abscess without bleeding; I71.43 Infrarenal abdominal aortic aneurysm, without rupture; K40.90 Unilateral inguinal hernia, without obstruction or gangrene, not specified as recurrent; L98.8 Other specified disorders of the skin and subcutaneous tissue; R21 Rash and other nonspecific skin eruption; M79.662 Pain in left lower leg
CPT/HCPCS: 11042; 72192; 93971

== ENCOUNTER → 2024-04-20 10:13 | Outpatient (CLI) | payer MEDICARE, OTHER, SELFPAY ==
[2022-10-20 21:55] VITALS: BMI 28.3
== END ==
PROVIDERS: PCP Internal Medicine; Referring Provider Nurse Practitioner Family; Visit Provider Surgery
DX: S81.802A Unspecified open wound, left lower leg, initial encounter (principal); L98.8 Other specified disorders of the skin and subcutaneous tissue; R21 Rash and other nonspecific skin eruption; I10 Essential (primary) hypertension; I25.10 Atherosclerotic heart disease of native coronary artery without angina pectoris
CPT/HCPCS: 11042

== ENCOUNTER → 2024-04-27 14:40 | Outpatient (CLI) | payer MEDICARE, OTHER, SELFPAY ==
[2022-10-20 21:55] VITALS: BMI 28.3
== END ==
PROVIDERS: PCP Internal Medicine; Referring Provider Nurse Practitioner Family; Visit Provider Surgery
DX: S81.802D Unspecified open wound, left lower leg, subsequent encounter (principal)
CPT/HCPCS: 99212; 99213

== ENCOUNTER → 2024-05-18 14:39 | Outpatient (CLI) | payer MEDICARE, OTHER, SELFPAY ==
[2022-10-20 21:55] VITALS: BMI 28.3
== END ==
LOC: WC 14:40
PROVIDERS: PCP Internal Medicine; Referring Provider Nurse Practitioner Family; Visit Provider Surgery
DX: S81.802D Unspecified open wound, left lower leg, subsequent encounter (principal)
CPT/HCPCS: 99211; 99213